=== PATIENT | male | born 1985 ===

== ENCOUNTER 2023-06-18 10:02 | Outpatient (CLI) | payer OTHER | END 2023-06-18 10:24 | disposition home or self-care (01) | LOC: SONOGRAMA 10:02 | PROVIDERS: ATTEND Otolaryngology | DX: K11.8 Other diseases of salivary glands (principal) ==

== ENCOUNTER 2023-07-02 07:18 | Outpatient (CLI) | payer OTHER | END 2023-07-02 07:27 | disposition home or self-care (01) | LOC: TOM 07:18 | PROVIDERS: ATTEND Internal Medicine Cardiovascular Disease | DX: I71.21 Aneurysm of the ascending aorta, without rupture (principal) ==

== ENCOUNTER 2025-04-21 07:06 | Outpatient (CLI) | payer OTHER | END 2025-04-21 07:19 | disposition home or self-care (01) | LOC: TOM 07:06 | DX: M06.9 Rheumatoid arthritis, unspecified (principal); Q87.40 Marfan syndrome, unspecified ==